=== PATIENT | male | born 1985 | race Caucasian/White ===

== ENCOUNTER 2019-12-23 12:07 | Emergency (ER) | payer SELFPAY ==
[~2019-12-23] VITALS: Ht 182.9 cm; Wt 117.9 kg
[2019-12-23] MEDS: PREDNISONE 20 MG TAB PO ONE (12:31)
[2019-12-23] MEDS: KETOROLAC TROMETHAMINE 60 MG/2 ML VIAL IM ONE (12:31)
[2019-12-23] MEDS ORDERED: KETOROLAC TROME10 MG PO (13:06)
[2019-12-23] MEDS ORDERED: PREDNISONE20 MG PO (13:06)
[2019-12-23] MEDS ORDERED: CYCLOBENZAPRINE5 MG PO (13:06)
--- NOTE | 2019-12-23 13:10 | Diagnostic Imaging Report ---
Exam: Cervical spine History: neck pain Comparison: None. Findings: No fracture or malalignment. Disk spaces preserved. No abnormal soft tissue calcification or soft tissue defect. Impression: No acute osseous abnormality Signed by: Dr. Jose Eduardo Arriaga M.D. on 12/23/2019 1:08 PM
[2019-12-23 13:40] VITALS: BP 138/99
== END 2019-12-23 13:46 | disposition home or self-care (01) ==
LOC: ER 12:07
DX: M54.12 Radiculopathy, cervical region (principal)
CPT/HCPCS: 72050; 99283; J1885; J7512